=== PATIENT | male | born 1980 | race Caucasian/White ===

== ENCOUNTER → 2018-08-10 12:21 | Outpatient (CLI) | payer SELFPAY ==
[2018-08-10 12:38] VITALS: BP 120/80; PULSE 79; RESP 18; TEMP 36.8; O2SAT 97; BMI 29.2
--- NOTE | 2018-08-10 13:06 | HTC.HP3 ---
Problem List (1) Hemophilia B in male Status: Chronic Subjective Date of Service:: 08/10/18 Chief Complaint: F/u for Hemophilia B. History of Present Illness: 38y.o.man with Hemophilia B, comes for follow up. He had one dose after he was bitten by a horse. Has not seen a Dentist this yr. Health History: Past Medical History Past Medical History: Bleeding disorder Past Surgical History Other Surgical History: BRAIN Family History Paternal Past Medical History: Allergies Past Medical History (Last Reviewed 08/10/18 @ 12:37 by Samanta Crump) Hemophilia (Acute) Past Surgical History (Last Reviewed 08/10/18 @ 12:37 by Samanta Crump) History of brain surgery (Acute) Allergies/Adverse Reactions: Allergy/AdvReac Type Severity Reaction Status Date / Time aspirin AdvReac Severe BLEEDING Verified 08/10/18 12:36 Risk Factors Social History Smoking Status Never smoker Tobacco Risk Data: Tobacco Risk Smoking Status Never smoker Type of tobacco: Smokeless tobacco usage: Items/Day: Year started: Years used: Counseled to quit/cut down: Reason for no counseling performed: Reason for no pharmacotherapy: Tobacco use comments: Passive smoke exposure: No Substance Risk Drug use: No Caffeine use [drinks/day]: 2 Alcohol use: No Type of alcohol: Drinks per day: Has patient felt the need to cut down: Has the patient been annoyed by complaints: Has the patient felt guilty about drinking: Has the patient needed an eye deputy of counter intelligence in the mornings: Comments: Review of Systems Constitutional:: Denies: Fever, Sweats, Weight loss, Appetite change, Chills Cardiovascular:: Denies: Chest pain, Palpitations, Dyspnea on exertion, Orthopnea, PND, Shortness of breath Respiratory: Denies: Cough, Hemoptysis, Shortness of Breath, Wheezing Gastrointestinal:: Denies: Abdominal pain, Nausea, Vomiting, Diarrhea, Constipation, Hematochezia Genitourinary: Denies: Dysuria, Hematuria, 15, Flank pain Musculoskeletal:: Denies: Back pain, Myalgia, Arthralgia Skin: Denies: Rash, Skin Changes, Wounds Neurological:: Denies: Headache, Dizziness, Visual changes, Tinnitus, Hearing loss Psychiatric: Denies: Anxiety, Depression, Homicidal Ideations, Suicidal Ideations Vital Signs Height 5 ft 9 in Weight: 89.811 kg Weight in Pounds 198.0 lbs Pulse Ox 97 Temperature 98.2 F Pulse Rate 79 Respiratory Rate 18 Blood Pressure 120/80 Blood Pressure Position Sitting Therapy ROM Screening - Subjective Subjective:: pt states he is doing well- no concerns at this- states he did have a minor bleed due to a horse bite- - Objective Right shoulder flex:: 155 Left shoulder flex:: 155 Right shoulder extension:: 35 Left shoulder extension:: 40 Right elbox flex/ext:: 130/0 Left elbox flex/ext:: 130/0 Right elbow circumference:: 28cm Left elbow circumference:: 28cm Right forearm sup/pron:: WNL Left forearm sup/pron:: WNL Right knee flexion:: 115 Left knee flexion:: 110 Right knee circumference:: 39.5cm Left knee circumference:: 40cm Right ankle dorsiflexion:: 20 Left ankle dorsiflexion:: 20 Right ankle Plan-flex:: 45 Left ankle Plan-flex:: 45 Right ankle circumference:: NT due to boots on Left ankle circumference:: NT due to boots on Right hip flexion:: 80 Left hip flexion:: 78 Right hip extension:: 15 Left hip extension:: 15 - Assessment Assessment:: Pt demo all ROM WNL no concerns at this time. Assessment and Plan Hemophilia B, clinically stable. Plan is to continue Factor replacement as needed. To call [facility] if Vasectomy is scheduled. RTC 1 yr. Primary Care Provider: No Primary Care Phys Referring Provider:
--- NOTE | 2018-08-10 13:12 | WMO.HTC_ITS ---
Problem List (1) Hemophilia B in male Status: Chronic Subjective Date of Service:: 08/10/18 Chief Complaint: F/u for Hemophilia B. History of Present Illness: 38y.o.man with Hemophilia B, comes for follow up. He had one dose after he was b itten by a horse. Has not seen a Dentist this yr. Health History: Past Medical History Past Medical History: Bleeding disorder Past Surgical History Other Surgical History: BRAIN Family History Paternal Past Medical History: Allergies Past Medical History (Last Reviewed 08/10/18 @ 12:37 by Samanta Crump) Hemophilia (Acute) Past Surgical History (Last Reviewed 08/10/18 @ 12:37 by Samanta Crump) History of brain surgery (Acute) Allergies/Adverse Reactions: Allergy/AdvReac Type Severity Reaction Status Date / Time aspirin AdvReac Severe BLEEDING Verified 08/10/18 12:36 Risk Factors Social History Smoking Status Never smoker Tobacco Risk Data: Tobacco Risk Smoking Status Never smoker Type of tobacco: Smokeless tobacco usage: Items/Day: Year started: Years used: Counseled to quit/cut down: Reason for no counseling performed: Reason for no pharmacotherapy: Tobacco use comments: Passive smoke exposure: No Substance Risk Drug use: No Caffeine use [drinks/day]: 2 Alcohol use: No Type of alcohol: Drinks per day: Has patient felt the need to cut down: Has the patient been annoyed by complaints: Has the patient felt guilty about drinking: Has the patient needed an eye foot roentgenologist in the mornings: Comments: Review of Systems Constitutional:: Denies: Fever, Sweats, Weight loss, Appetite change, Chills Cardiovascular:: Denies: Chest pain, Palpitations, Dyspnea on exertion, Orthopnea, PND, Shortness of breath Respiratory: Denies: Cough, Hemoptysis, Shortness of Breath, Wheezing Gastrointestinal:: Denies: Abdominal pain, Nausea, Vomiting, Diarrhea, Consti pation, Hematochezia Genitourinary: Denies: Dysuria, Hematuria, 15, Flank pain Musculoskeletal:: Denies: Back pain, Myalgia, Arthralgia Skin: Denies: Rash, Skin Changes, Wounds Neurological:: Denies: Headache, Dizziness, Visual changes, Tinnitus, Hearing loss Psychiatric: Denies: Anxiety, Depression, Homicidal Ideations, Suicidal Ideations Vital Signs Height 5 ft 9 in Weight: 89.811 kg Weight in Pounds 198.0 lbs Pulse Ox 97 Temperature 98.2 F Pulse Rate 79 Respiratory Rate 18 Blood Pressure 120/80 Blood Pressure Position Sitting Therapy ROM Screening - Subjective Subjective:: pt states he is doing well- no concerns at this- states he did have a minor bleed due to a horse bite- - Objective Right shoulder flex:: 155 Left shoulder flex:: 155 Right shoulder extension:: 35 Left shoulder extension:: 40 Right elbox flex/ext:: 130/0 Left elbox flex/ext:: 130/0 Right elbow circumference:: 28cm Left elbow circumference:: 28cm Right forearm sup/pron:: WNL Left forearm sup/pron:: WNL Right knee flexion:: 115 Left knee flexion:: 110 Right knee circumference:: 39.5cm Left knee circumference:: 40cm Right ankle dorsiflexion:: 20 Left ankle dorsiflexion:: 20 Right ankle Plan-flex:: 45 Left ankle Plan-flex:: 45 Right ankle circumference:: NT due to boots on Left ankle circumference:: NT due to boots on Right hip flexion:: 80 Left hip flexion:: 78 Right hip extension:: 15 Left hip extension:: 15 - Assessment Assessment:: Pt demo all ROM WNL no concerns at this time. Assessment and Plan Hemophilia B, clinically stable. Plan is to continue Factor replacement as needed. To call [facility] if Vasectomy is scheduled. RTC 1 yr. Primary Care Provider: No Primary Care Phys Referring Provider:
== END ==
PROVIDERS: Family Provider Family Medicine; PCP Family Medicine; Referring Provider Internal Medicine Hematology & Oncology; Visit Provider Internal Medicine Medical Oncology
DX: D67 Hereditary factor IX deficiency (principal)

== ENCOUNTER → 2019-07-05 11:21 | Outpatient (CLI) | payer OTHER, SELFPAY ==
--- NOTE | 2019-07-05 09:37 | HTC.HP_ITS ---
- Problem List (1) Hemophilia B in male Status: Chronic Subjective Date of Service:: 07/05/19 Chief Complaint: Hemophilia B annual follow-up History of Present Illness: 39-year-old male with mild hemophilia B, on demand factor replacement Used factor on 2 occasions this past year: 1. Hale[place]-vasectomy used 2 doses. 2. After a traumatic injury to both shins 1 dose Health History: Past Medical History Past Medical History: Bleeding disorder Past Surgical History Other Surgical History: BRAIN Family History Paternal Past Medical History: Allergies Past Medical History (Last Reviewed 08/10/18 @ 12:37 by Samanta Crump) Hemophilia (Acute) Past Surgical History (Last Reviewed 08/10/18 @ 12:37 by Samanta Crump) History of brain surgery (Acute) Family History (Last Updated 08/10/18 @ 16:00 by Samanta Crump) Other No pertinent family history Social History Smoking Status Never smoker Allergies/Adverse Reactions: Allergy/AdvReac Type Severity Reaction Status Date / Time aspirin AdvReac Severe BLEEDING Verified 07/05/19 11:29 Risk Factors Social History Smoking Status Never smoker Tobacco Risk Data: Tobacco Risk Smoking Status Never smoker Type of tobacco: Smokeless tobacco usage: Items/Day: Year started: Years used: Counseled to quit/cut down: Reason for no counseling performed: Reason for no pharmacotherapy: Tobacco use comments: Passive smoke exposure: Substance Risk Drug use: Caffeine use [drinks/day]: Alcohol use: Type of alcohol: Drinks per day: Has patient felt the need to cut down: Has the patient been annoyed by complaints: Has the patient felt guilty about drinking: Has the patient needed an eye security researcher in the mornings: Comments: Review of Systems Constitutional:: Denies: Fever, Sweats, Weight loss, Appetite change, Chills Cardiovascular:: Denies: Chest pain, Palpitations, Dyspnea on exertion, Ort hopnea, PND, Shortness of breath Respiratory: Denies: Cough, Hemoptysis, Shortness of Breath, Wheezing Gastrointestinal:: Denies: Abdominal pain, Nausea, Vomiting, Diarrhea, Constipation, Hematochezia Genitourinary: Denies: Dysuria, Hematuria, 15, Flank pain Musculoskeletal:: Denies: Back pain, Myalgia, Arthralgia Skin: Denies: Rash, Skin Changes, Wounds Neurological:: Denies: Headache, Dizziness, Visual changes, Tinnitus, Hearing loss Psychiatric: Denies: Anxiety, Depression, Homicidal Ideations, Suicidal Ideations - Physical Exam General: Alert, Oriented x3, No apparent distress HEENT: Atraumatic, PERRLA, EOMI, Normocephalic Oropharynx:: Dry mucosa Neck:: Supple, Trachea midline. Negative for: JVD, bilateral Cardiac:: Regular rate, Regular rhythm, Normal S1, Normal S2. Negative for: Murmur Lungs: Clear to auscultation, Excusion symmetrical. Negative for: Rhonchi, Wheezes Abdomen:: Soft, Non-tender, Non-distended. Negative for: Hepatosplenomegaly Extremities:: Negative for: Cyanosis, Edema Neurological: Neuro grossly intact Skin:: Ecchymosis - Shins. Negative for: Lesions, Rash, Petechiae Psychiatric:: Appropriate affect, Euthymic Lymphatics:: Negative for: Cervical lymphadenopathy, Supraclavicular lymphadenopathy Assessment and Plan 39-year-old male with mild hemophilia B. Hemophilia annual screening visit. Reviewed: - On-demand therapy. - Appropriate oral hygiene and regular dental care is essential. - An appropriate exercise regimen encouraged for maintenance of a healthy weight, cardiovascular risk reduction, and positive effects on strength, flexibility, balance, joint stabilization, bone density, socialization, and psychological health. - Medicines that increase the risk of bleeding should be avoided namely anticoagulants, aspirin, and other nonsteroidal anti-inflammatory drugs (NSAIDs). - Herbal remedies and [id number] supplements such as fish oil, may increase bleeding risk. - Pain can be treated with local measures (eg, cold packs, immobilization, splinting), and acetaminophen. - Cardiovascular disease prevention : focus on diet, exercise, smoking avoidance, and control of hypertension and hypercholesterolemia. - Planning for invasive procedures and elective surgery. Patient was also evaluated by the Hemophilia multidisciplinary team on site and Dr Rico via video conferencing. Primary Care Provider: Aydin Pak MD Referring Provider: James Rico MD
[2019-07-05 11:30] VITALS: BP 111/75; PULSE 77; RESP 14; TEMP 36.2; O2SAT 96; BMI 28.8
== END ==
PROVIDERS: Family Provider Family Medicine; PCP Family Medicine; Referring Provider Internal Medicine Hematology & Oncology; Visit Provider Internal Medicine Medical Oncology
DX: D67 Hereditary factor IX deficiency (principal)

== ENCOUNTER → 2025-08-18 | Outpatient (CLI) | payer SELFPAY | END | disposition home or self-care (01) | LOC: LABSPEC 18:00 | PROVIDERS: PCP Family Medicine; Referring Provider Nurse Practitioner Family; Visit Provider Nurse Practitioner Family | DX: R30.0 Dysuria (principal) | CPT/HCPCS: 87086; 87088 ==